=== PATIENT | female | born 1970 | race Caucasian/White ===

== ENCOUNTER 2017-10-02 18:41 | Inpatient (IN) | payer BC ==
--- NOTE | 2017-10-02 19:41 | ED PDOC ---
HPI: Neurologic - General Time Seen by Provider: 10/02/17 18:59 Chief Complaint (Nursing): Weakness/Neurological Deficit Chief Complaint (Provider): Weakness/Neurological Deficit Source: patient Exam Limitations: no limitations - History of Present Illness Timing/Duration: increasing, other (x12 hours) Allergies/Adverse Reactions: Allergies No Known Allergies Allergy (Verified 10/02/17 19:17) Home Medications: Ambulatory Orders No Known Home Med 10/02/17 Additional Complaint(s): Antoinette Escoto is a 47 year old female who presents to the emergency department with a complaint of right facial weakness associated with persisting tongue numbness and sinus congestion ongoing since 0800 today. Denied headache, nausea, vomiting, arm/leg weakness, blurry vision, fever or chills. PMD: none provided Past Medical History Reviewed: Historical Data, Nursing Documentation, Vital Signs Vital Signs: Last Vital Signs Temp 98.3 F 10/02/17 18:46 Pulse 129 H 10/02/17 18:46 Resp 22 10/02/17 18:46 BP 211/98 H 10/02/17 18:46 Pulse Ox 100 10/02/17 18:46 - Medical History PMH: No Chronic Diseases - Surgical History Surgical History: No Surg Hx - Family History Family History: States: Stroke, [place], CAD, Diabetes Denies: No Known Family Hx - Social History Current smoker - smoking cessation education provided: No Alcohol: None Drugs: Denies - Home Medications Home Medications: Ambulatory Orders Medication Instructions Recorded No Known Home Med 10/02/17 - Allergies Allergies/Adverse Reactions: Allergies Allergy/AdvReac Type Severity Reaction Status Date / Time No Known Allergies Allergy Verified 10/02/17 19:17 Review of Systems ROS Statement: Except As Marked, All Systems Reviewed And Found Negative Constitutional: Negative for: Fever, Chills Eyes: Negative for: Vision Change ENT: Positive for: Nose Congestion Gastrointestinal: Negative for: Nausea, Vomiting Musculoskeletal: Negative for: Arm Pain (weakness), Leg Pain (weakness) Neurological: Positive for: Weakness (right facial droop), Numbness (right- sided tongue). Negative for: Headache Physical Exam - Reviewed Nursing Documentation Reviewed: Yes Vital Signs Reviewed: Yes - Physical Exam Appears: Positive for: Non-toxic, No Acute Distress Head Exam: Positive for: ATRAUMATIC, NORMOCEPHALIC Skin: Positive for: Warm, Dry Eye Exam: Positive for: EOMI, PERRL ENT: Negative for: Pharyngeal Erythema, Tonsillar Exudate Neck: Positive for: Painless ROM, Supple Cardiovascular/Chest: Positive for: Tachycardia. Negative for: Murmur Respiratory: Positive for: Normal Breath Sounds. Negative for: Wheezing, Respiratory Distress Gastrointestinal/Abdominal: Positive for: Soft. Negative for: Tenderness Back: Positive for: Normal Inspection. Negative for: Decreased ROM Extremity: Positive for: Normal ROM. Negative for: Deformity Lymphatic: Negative for: Adenopathy Neurologic/Psych: Positive for: Alert, Oriented (x3), Motor/Sensory Deficits ( RIGHT facial droop involving brow), Cerebellar Tests (normal), Gait (normal), Facial Droop (RIGHT). Negative for: Aphasia - Laboratory Results Result Diagrams: 10/04/17 05:30 10/04/17 06:30 - ECG ECG: Positive for: Interpreted By Me ECG Rhythm: Positive for: Normal QRS, Normal ST Segment, Sinus Tachycardia O2 Sat by Pulse Oximetry: 100 (RA) Pulse Ox Interpretation: Normal Medical Decision Making Medical Decision Making: Initial Impression: Right facial droop Differential Diagnosis: Omer's Palsy; CVA; electrolyte abnormality Initial Plan: * Type and screen * CT head * EKG * CMP * Lipid * Troponin I * CBC * PTT * PT * Accuc[place]k Time: 1952 --CT head FINDINGS: Brain:No hemorrhage. No significant white matter disease. No edema. Ventricles: Unremarkable. No ventriculomegaly. Bones/joints: Unremarkable. No acute fracture. Soft tissues: Unremarkable. Sinuses: Unremarkable as visualized. No acute sinusitis. Mastoid air cells: Unremarkable as visualized. No mastoid effusion. IMPRESSION: No intracranial hemorrhage. Please see discussion above. Pt's labs c/w undiagnosed diabetes. Pt's blood pressure persistently elevated. Risk factors for CVA present. Despite clinical presentation of [place] palsy, pt should still be hospitalized for r/o CVA. Scribe Attestation: Documented by Mimi Reid, acting as a scribe for Sayda Hernandez MD. Provider Scribe Attestation: All medical record entries made by the Scribe were at my direction and personally dictated by me. I have reviewed the chart and agree that the record accurately reflects my personal performance of the history, physical exam, medical decision making, and the department course for this patient. I have also personally directed, reviewed, and agree with the discharge instructions and disposition. Disposition - Clinical Impression Clinical Impression: Facial paralysis on right side, HTN (hypertension), Diabetes Discussed With Dr.: Bertram Castro Doctor Will See Patient In The: Hospital Counseled Patient/Family Regarding: Studies Performed, Diagnosis - Disposition Disposition Time: 21:00 Condition: SERIOUS - Pt Status Changed To: Hospital Disposition Of: Observation - POA Present On Arrival: Poor Glycemic Control
[2017-10-02 20:07] LABS: BASO # 0.1 K/uL (0.0-0.2); BASO % 0.9 % (0.0-2.0); EOS # 0.2 K/uL (0.0-0.7); EOS % 1.8 % (0.0-4.0); HEMATOCRIT 40.8 % (34.0-47.0); LYMPH # 1.9 K/uL (1.0-4.3); MEAN CELL VOLUME 77.2 fl (81.0-99.0); MEAN CORPUSCULAR HEMOGLOBIN 25.9 pg (27.0-31.0); MEAN CORPUSCULAR HGB CONC 33.6 g/dL (33.0-37.0); MEAN PLATELET VOLUME 7.7 fl (7.2-11.7); MONO # 0.5 K/uL (0.0-0.8); MONO % 4.8 % (0.0-10.0); NEUT # 8.2 K/uL (1.8-7.0); NEUT % 75.5 % (50.0-75.0); WHITE BLOOD COUNT 10.9 K/uL (4.8-10.8)
[2017-10-02 20:13] LABS: PARTIAL THROMBOPLASTIN TIME 31.5 Seconds (25.6-37.1)
[2017-10-02 21:25] LABS: ALB/GLOB RATIO 0.9 (1.0-2.1); ALKALINE PHOSPHATASE 86 U/L (38-126); ALT/SGPT 32 U/L (9-52); AST/SGOT 19 U/L (14-36); BILIRUBIN,TOTAL 0.3 mg/dl (0.2-1.3); BLOOD UREA NITROGEN 8 mg/dl (7-17); CALCIUM 9.2 mg/dL (8.4-10.2); CARBON DIOXIDE 25 mmol/L (22-30); CHLORIDE 102 mmol/L (98-107); CHOLESTEROL 168 mg/dL (0-199); GFR AFRICAN-AMERICAN > 60; GLUCOSE,RANDOM 336 mg/dL (65-105); SODIUM 137 mmol/l (132-148); TOTAL PROTEIN 8.3 G/DL (6.3-8.2)
[2017-10-02] MEDS ORDERED: EnalaprilAT 1.25 mg/ml Inj IVP STA (21:55)
[2017-10-02] MEDS ORDERED: EnalaprilAT 1.25 mg/ml Inj ONE (21:58)
[2017-10-02 22:33] LABS: URINE BACTERIA FEW (<OCC); URINE BILIRUBIN NEGATIVE (NEGATIVE); URINE BLOOD SMALL (NEGATIVE); URINE COLOR YELLOW (YELLOW); URINE GLUCOSE (UA) >=500 mg/dL (Normal); URINE KETONE NEGATIVE (NEGATIVE); URINE LEUKOCYTE ESTERASE LARGE Leu/uL (Negative); URINE PROTEIN 30 mg/dL (NEGATIVE); URINE UROBILINOGEN 0.2-1.0 mg/dL (0.2-1.0)
[2017-10-02 22:53] LABS: RBC URINE 27 /hpf (0-3); WBC URINE 38 /hpf (0-5)
[2017-10-03 07:44] LABS: MEAN CELL VOLUME 76.8 fl (81.0-99.0); MEAN CORPUSCULAR HEMOGLOBIN 26.2 pg (27.0-31.0); MEAN CORPUSCULAR HGB CONC 34.1 g/dL (33.0-37.0); RED CELL DISTRIBUTION WIDTH 14.6 % (11.5-14.5); WHITE BLOOD COUNT 9.4 K/uL (4.8-10.8)
[2017-10-03 07:46] LABS: ALB/GLOB RATIO 0.9 (1.0-2.1); ALKALINE PHOSPHATASE 74 U/L (38-126); ALT/SGPT 34 U/L (9-52); AST/SGOT 19 U/L (14-36); BILIRUBIN,TOTAL 0.6 mg/dl (0.2-1.3); BLOOD UREA NITROGEN 7 mg/dl (7-17); CALCIUM 8.8 mg/dL (8.4-10.2); CARBON DIOXIDE 28 mmol/L (22-30); CHLORIDE 104 mmol/L (98-107); CHOLESTEROL 141 mg/dL (0-199); GFR AFRICAN-AMERICAN > 60; GLUCOSE,RANDOM 262 mg/dL (65-105); POTASSIUM 4.1 MMOL/L (3.6-5.0); SODIUM 139 mmol/l (132-148); TOTAL PROTEIN 7.5 G/DL (6.3-8.2)
--- NOTE | 2017-10-03 09:24 | CT ---
PROCEDURE: CT HEAD WITHOUT CONTRAST. HISTORY: RIGHT facial droop COMPARISON: None available. TECHNIQUE: Axial computed tomography images were obtained through the head/brain without intravenous contrast. Radiation dose: Total exam DLP = 797.67 mGy-cm. This CT exam was performed using one or more of the following dose reduction techniques: Automated exposure control, adjustment of the mA and/or kV according to patient size, and/or use of iterative reconstruction technique. FINDINGS: HEMORRHAGE: No intracranial hemorrhage. BRAIN: No mass effect or edema. No atrophy or chronic microvascular ischemic changes. VENTRICLES: Unremarkable. No hydrocephalus. CALVARIUM: Unremarkable. PARANASAL SINUSES: Unremarkable as visualized. No significant inflammatory changes. MASTOID AIR CELLS: Unremarkable as visualized. No inflammatory changes. OTHER FINDINGS: None. IMPRESSION: No acute intracranial hemorrhage. Consider followup MRI to assess facial droop and 2 exclude small acute infarct. Note that preliminary report was provided by overnight radiology service
[2017-10-03] MEDS: Enoxaparin 40 mg Syringe SC SCH (09:31)
[2017-10-03 11:10] LABS: THYROID STIMULATING HORMONE 1.64 mIU/ML (0.46-4.68)
--- NOTE | 2017-10-03 11:25 | RAD ---
HISTORY: Uncontrolled HTN COMPARISON: No prior. TECHNIQUE: Chest PA and lateral FINDINGS: LUNGS: Poor inspiration with low lung volumes, crowded bronchovascular markings and mild bibasilar atelectasis. . More discrete curvilinear atelectasis seen apparently in the right anterior lower lung field seen on the lateral projection PLEURA: No significant pleural effusion identified. No pneumothorax apparent. CARDIOVASCULAR: Normal. OSSEOUS STRUCTURES: No significant abnormalities. VISUALIZED UPPER ABDOMEN: Normal. OTHER FINDINGS: None. IMPRESSION: Poor inspiration with low lung volumes, crowded bronchovascular markings and mild bibasilar atelectasis.
--- NOTE | 2017-10-03 12:44 | HP ---
CHIEF COMPLAINT: Numbness of the face and asymmetry of the face. HISTORY OF PRESENT ILLNESS: This is a 47-year-old female without significant past medical history and significant medical followup who was having tongue numbness and facial numbness and dissymmetry of the face since 8:00 yesterday. The patient was brought to emergency room and was admitted for further management. REVIEW OF SYSTEMS: Positive for numbness and weakness of the face. Review of systems otherwise is negative for headache, dizziness, syncope, loss of consciousness, chest pain, shortness of breath, nausea, vomiting, diarrhea, constipation, any new joint or extremity pain. Review of systems of all other organ system is unremarkable. PAST MEDICAL HISTORY: Unremarkable. PAST SURGICAL HISTORY: Unremarkable. PERSONAL HISTORY: The patient is currently nonsmoker and nondrinker. No substance abuse. MEDICATIONS: The patient is not on any medication. ALLERGIES: THE PATIENT IS NOT ALLERGIC TO ANY MEDICATION. FAMILY HISTORY: Noncontributory. PHYSICAL EXAMINATION GENERAL: A well-built, well-nourished, morbidly obese 47-year-old female in no acute distress. VITAL SIGNS: Temperature 98.2, pulse 97, respirations 18, blood pressure 159/85. HEENT: The patient has a droop of right mouth angle. NECK: No JVD. No thyromegaly. No lymphadenopathy. No nystagmus. Normocephalic and atraumatic skull. HEART: S1 and S2 normal and regular. No significant murmur, gallop, or rub is heard. LUNGS: Shows good bilateral air exchange. No rales or rhonchi. ABDOMEN: Soft, nontender. No organomegaly. No fluid. Bowel sounds are plus. EXTREMITIES: No edema. No calf swelling. No tenderness. No acute ischemia. CENTRAL NERVOUS SYSTEM: Essentially unchanged except the patient has asymmetry of the face. DIAGNOSTIC DATA: Available diagnostic data reviewed. WBC 9.4, hemoglobin 12.6, hematocrit 37, platelets 263. Sodium 139, potassium 4.1, chloride 104, bicarb 28, BUN 7, creatinine 0.5. Accu-Cheks are 336, 217, 262. SMA-12 is unremarkable. Urinalysis is unremarkable. CAT scan of head shows no acute infarct. Telemetry monitoring does not show significant arrhythmias. EKG is unremarkable. Chest x-ray is unremarkable. ADMITTING IMPRESSION: Right facial weakness, rule out acute cerebrovascular accident, rule out Omer's palsy; type 2 diabetes, new onset; hypertension, morbid obesity, hypertriglyceridemia. PLAN: Plan as ordered. Case and plan discussed with the patient. Bertram Castro MD
[2017-10-03] MEDS: Insulin Regular 100 units/ml SC SCH ×3 (13:19→22:20)
--- NOTE | 2017-10-03 18:28 | CARD ---
APPROVED REPORT EKG Measurement Heart [id number] <Conclusion> Sinus tachycardia Possible Left atrial enlargement Borderline ECG
--- NOTE | 2017-10-04 01:18 | CP.PCM.CON ---
History of Present Illness - History of Present Illness History of Present Illness: Antoinette Escoto is a 47 year old female who presents to the emergency department with a complaint of right facial weakness associated with persisting tongue numbness and sinus congestion ongoing since 0800 today. Denied headache, nausea, vomiting, arm/leg weakness, blurry vision, fever or chills. She was found to have high Blood Pressure and High Blood Glucose and was started on medicine for DM and for HTN. She was found to have high lipid profile, high Cholesterol, high Triglycerides. Last Vital Signs Temp 98.3 F 10/02/17 18:46 Pulse 129 H 10/02/17 18:46 Resp 22 10/02/17 18:46 BP 211/98 H 10/02/17 18:46 Pulse Ox 100 10/02/17 18:46 - Medical History PMH: No Chronic Diseases - Surgical History Surgical History: No Surg Hx - Family History Family History: States: Stroke, [place], CAD, Diabetes Denies: No Known Family Hx - Social History Current smoker - smoking cessation education provided: No Alcohol: None Drugs: Denies - Home Medications Home Medications: Ambulatory Orders Medication Instructions Recorded No Known Home Med 10/02/17 Allergies Allergies/Adverse Reactions: Allergies Allergy/AdvReac Type Severity Reaction Status Date / Time No Known Allergies Allergy Verified 10/02/17 19:17 Review of Systems ROS Statement: Except As Marked, All Systems Reviewed And Found Negative Constitutional: Negative for: Fever, Chills Eyes: Negative for: Vision Change ENT: Positive for: Nose Congestion Gastrointestinal: Negative for: Nausea, Vomiting Musculoskeletal: Negative for: Arm Pain (weakness), Leg Pain (weakness) Neurological: Positive for: Weakness (right facial droop), Numbness (right- sided tongue). Negative for: Headache Physical Exam Physical Exam Appears: Positive for: Non-toxic, No Acute Distress Head Exam: Positive for: ATRAUMATIC, NORMOCEPHALIC Skin: Positive for: Warm, Dry Eye Exam: Positive for: EOMI, PERRL ENT: Negative for: Pharyngeal Erythema, Tonsillar Exudate Neck: Positive for: Painless ROM, Supple Cardiovascular/Chest: Positive for: Tachycardia. Negative for: Murmur Respiratory: Positive for: Normal Breath Sounds. Negative for: Wheezing, Respiratory Distress Gastrointestinal/Abdominal: Positive for: Soft. Negative for: Tenderness Back: Positive for: Normal Inspection. Negative for: Decreased ROM Extremity: Positive for: Normal ROM. Negative for: Deformity Lymphatic: Negative for: Adenopathy Neurologic/Psych: Positive for: Alert, Oriented (x3), Motor/Sensory Deficits ( RIGHT facial droop involving brow), Cerebellar Tests (normal), Gait (normal), Facial Droop (RIGHT). Negative for: Aphasia ECG Rhythm: Positive for: Normal QRS, Normal ST Segment, Sinus Tachycardia O2 Sat by Pulse Oximetry: 100 (RA) Medical Decision Making Medical Decision Making: Initial Impression: Right facial droop Differential Diagnosis: Omer's Palsy; CVA; electrolyte abnormality --CT head Negative IMPRESSION: No intracranial hemorrhage. Please see discussion above. Past Patient History - Past Medical History & Family History Past Medical History?: Yes - Past Social History Smoking Status: Never Smoked - CARDIAC Hx Cardiac Disorders: No - PULMONARY Hx Respiratory Disorders: No - NEUROLOGICAL Other/Comment: omer's palsy - HEENT Hx HEENT Problems: No - RENAL Hx Chronic Kidney Disease: No - ENDOCRINE/METABOLIC Hx Endocrine Disorders: No - HEMATOLOGICAL/ONCOLOGICAL Hx Blood Disorders: No Hx AIDS: No Hx Human Immunodeficiency Virus (HIV): No - INTEGUMENTARY Hx Dermatological Problems: No - MUSCULOSKELETAL/RHEUMATOLOGICAL Hx Musculoskeletal Disorders: No Hx Falls: No - GASTROINTESTINAL Hx Gastrointestinal Disorders: No - GENITOURINARY/GYNECOLOGICAL Hx Genitourinary Disorders: No - PSYCHIATRIC Hx Psychophysiologic Disorder: No Hx Substance Use: No - SURGICAL HISTORY Hx Surgeries: No - ANESTHESIA Hx Anesthesia: No Meds Allergies/Adverse Reactions: Allergies Allergy/AdvReac Type Severity Reaction Status Date / Time No Known Allergies Allergy Verified 10/02/17 19:17 - Medications Medications: Current Medications Amlodipine Besylate (Norvasc) 10 mg PO DAILY [facility] Enoxaparin Sodium (Lovenox) 40 mg SC DAILY [facility] PRN Reason: Protocol Last Admin: 10/03/17 09:31 Dose: 40 mg Insulin Human Regular (Humulin R) 0 units SC ACCU-CHECK [facility] PRN Reason: Protocol Last Admin: 10/03/17 22:20 Dose: Not Given Physical Exam - Neurological Exam Additional comments: She felt funny taste of food and water 1 to 2 days prior to her facial paralysis Denies hearing problems or ear noise or ringing Mental Status: Awake, Alert. Oriented X 3. Fluent coherent Speech Normal Cognition, normal memory X3 Cranial Nerves II to XII: Right Facial weakness , loss of facial expression, Loss of right Nasolabial Crease Loss of frontal Frowning, unable to raise her right eye brow, unable to purse her Right Eye Tenderness behind the left ear at the Stylomastoid area. Inability to blow her mouth with air, as it leaks on the right side. Central tongue. Right eye is dry, without tears and is irritable LMNL of the Right Facial Palsy, suggesting Right Omer's Palsy. Eye movements are normal, visual eye wei are normal Motor: Normal tone, Power and Muscle Bulk DTR are 0 to 1/4 toes are down going by plantar stimulation. Sensory: No deficits Cerebellar: Normal Exam, FNT, HST, Tandem walking Stature and Gait: Normal Results - Vital Signs Recent Vital Signs: Last Vital Signs Temp 98.7 F 10/04/17 00:53 Pulse 99 H 10/04/17 00:53 Resp 20 10/04/17 00:53 BP 158/94 H 10/04/17 00:53 Pulse Ox 98 10/04/17 00:53 - Labs Result Diagrams: 10/03/17 06:30 10/03/17 06:30 Labs: Laboratory Results - last 24 hr 10/02/17 10/03/17 10/03/17 19:59 05:31 06:30 WBC 9.4 RBC 4.82 Hgb 12.6 Hct 37.0 MCV 76.8 L MCH 26.2 L MCHC 34.1 RDW 14.6 H Plt Count 263 Sodium Potassium Chloride Carbon Dioxide Anion Gap BUN Creatinine Est GFR ( Amer) Est GFR (Non-Af Amer) POC Glucose (mg/dL) 284 H 217 H Random Glucose Calcium Total Bilirubin AST ALT Alkaline Phosphatase Total Protein Albumin Globulin Albumin/Globulin Ratio Triglycerides Cholesterol LDL Cholesterol Direct HDL Cholesterol Vitamin B12 TSH 3rd Generation 10/03/17 10/03/17 10/03/17 06:30 10:00 10:35 WBC RBC Hgb Hct MCV MCH MCHC RDW Plt Count Sodium 139 Potassium 4.1 Chloride 104 Carbon Dioxide 28 Anion Gap 12 BUN 7 Creatinine 0.5 L Est GFR ( Amer) > 60 Est GFR (Non-Af Amer) > 60 POC Glucose (mg/dL) 245 H Random Glucose 262 H Calcium 8.8 Total Bilirubin 0.6 AST 19 ALT 34 Alkaline Phosphatase 74 Total Protein 7.5 Albumin 3.5 Globulin 4.0 H Albumin/Globulin Ratio 0.9 L Triglycerides 142 D Cholesterol 141 LDL Cholesterol Direct 93 HDL Cholesterol 30 Vitamin B12 312 TSH 3rd Generation 1.64 10/03/17 10/03/17 16:29 22:01 WBC RBC Hgb Hct MCV MCH MCHC RDW Plt Count Sodium Potassium Chloride Carbon Dioxide Anion Gap BUN Creatinine Est GFR ( Amer) Est GFR (Non-Af Amer) POC Glucose (mg/dL) 211 H 161 H Random Glucose Calcium Total Bilirubin AST ALT Alkaline Phosphatase Total Protein Albumin Globulin Albumin/Globulin Ratio Triglycerides Cholesterol LDL Cholesterol Direct HDL Cholesterol Vitamin B12 TSH 3rd Generation Assessment & Plan (1) Facial paralysis on right side Assessment and Plan: R/O Omer's Palsy, R/O CVA, R/O Seizures Status: Acute (2) HTN (hypertension) Assessment and Plan: Newly diagnosed this admission High Lipid profile, Obesity Status: Acute (3) Diabetes 1.5, managed as type 2 Assessment and Plan: Newly diagnose during this admission Status: Acute
[2017-10-04] MEDS: Insulin Regular 100 units/ml SC SCH ×4 (06:20→23:00)
[2017-10-04 06:48] LABS: HEMATOCRIT 39.4 % (34.0-47.0); MEAN CELL VOLUME 77.8 fl (81.0-99.0); MEAN CORPUSCULAR HGB CONC 33.4 g/dL (33.0-37.0); RED CELL DISTRIBUTION WIDTH 14.7 % (11.5-14.5); WHITE BLOOD COUNT 8.2 K/uL (4.8-10.8)
[2017-10-04 07:19] LABS: ALB/GLOB RATIO 0.9 (1.0-2.1); ALKALINE PHOSPHATASE 77 U/L (38-126); ALT/SGPT 37 U/L (9-52); AST/SGOT 27 U/L (14-36); BILIRUBIN,TOTAL 0.7 mg/dl (0.2-1.3); BLOOD UREA NITROGEN 9 mg/dl (7-17); CALCIUM 9.1 mg/dL (8.4-10.2); CARBON DIOXIDE 27 mmol/L (22-30); CHLORIDE 103 mmol/L (98-107); CHOLESTEROL 152 mg/dL (0-199); GFR AFRICAN-AMERICAN > 60; GLUCOSE,RANDOM 244 mg/dL (65-105); POTASSIUM 4.2 MMOL/L (3.6-5.0); SODIUM 139 mmol/l (132-148)
[2017-10-04 07:36] LABS: THYROID STIMULATING HORMONE 1.91 mIU/ML (0.46-4.68)
[2017-10-04] MEDS: Enoxaparin 40 mg Syringe SC SCH (09:04)
--- NOTE | 2017-10-04 10:13 | PN ---
DATE: 10/04/2017 SUBJECTIVE: The patient is seen and examined. Interim events noted. Consults noted and appreciated. Neurology followup and intervention noted and appreciated. The patient remains in Progressive Care Unit on telemetry monitoring. The patient feels okay, denies any specific medical complaints. No chest pain. No shortness of breath. PHYSICAL EXAMINATION: GENERAL: The patient is in no acute distress. VITAL SIGNS: Stable. HEART: S1 and S2, normal and regular. LUNGS: Good bilateral air exchange. ABDOMEN: Soft, nontender. EXTREMITIES: No edema. No calf swelling. No tenderness. No acute ischemia. CENTRAL NERVOUS SYSTEM: Essentially unchanged. The patient still has signs of Omer's palsy. DIAGNOSTIC DATA: Available diagnostic data reviewed. Hemoglobin A1c significantly high. Accu-Chek has been running high. Blood pressure also is a little high. ASSESSMENT AND PLAN: Diagnostic data reviewed the patient at the length, need for multiple medications, explained in detail. New diagnosis of diabetes and blood pressure and Omer's palsy also explained to the patient in detail. Complication also advised, need for periodic followup also explained to the patient. Plan as ordered. Bertram Castro MD
[2017-10-04] MEDS: Artificial Tears Opht Soln OU SCH (21:36)
--- NOTE | 2017-10-04 22:35 | CP.PCM.PN ---
Subjective - Date & Time of Evaluation Date of Evaluation: 10/04/17 Time of Evaluation: 20:20 - Subjective Subjective: Improvement of her right side facial Palsy is clear as she is exercising since I visited her and explained to her her problems and her Facial exercises. Her BP is better. Objective - Vital Signs/Intake and Output Vital Signs (last 24 hours): Temp Pulse Resp BP Pulse Ox 97.8 F 96 H 16 129/80 97 10/04/17 19:57 10/04/17 19:57 10/04/17 19:57 10/04/17 19:57 10/04/17 19:57 Intake and Output: 10/04/17 10/05/17 18:59 06:59 Intake Total 1500 Balance 1500 - Medications Medications: Current Medications Acyclovir (Zovirax) 800 mg PO TID [facility] PRN Reason: Protocol Last Admin: 10/04/17 17:38 Dose: 800 mg Amlodipine Besylate (Norvasc) 10 mg PO DAILY [facility] Last Admin: 10/04/17 09:03 Dose: 10 mg Artificial Tears (Artificial Tears) 1 drop OU Q4 [facility] Last Admin: 10/04/17 21:36 Dose: 1 drop Enoxaparin Sodium (Lovenox) 40 mg SC DAILY [facility] PRN Reason: Protocol Last Admin: 10/04/17 09:04 Dose: 40 mg Insulin Human Regular (Humulin R) 0 units SC ACCU-CHECK [facility] PRN Reason: Protocol Last Admin: 10/04/17 17:37 Dose: Not Given Lisinopril (Zestril) 10 mg PO DAILY [facility] Last Admin: 10/04/17 09:02 Dose: 10 mg Metformin HCl (Glucophage) 500 mg PO BIDWM [facility] Last Admin: 10/04/17 17:39 Dose: 500 mg - Labs Labs: 10/04/17 05:30 10/04/17 06:30 PT 11.8 Seconds (9.8-13.1) 10/02/17 20:00 INR 1.0 (0.9-1.2) 10/02/17 20:00 APTT 31.5 Seconds (25.6-37.1) 10/02/17 20:00 Assessment and Plan (1) Facial paralysis on right side Status: Acute (2) HTN (hypertension) Status: Acute (3) Diabetes 1.5, managed as type 2 Status: Acute
[2017-10-05 05:59] LABS: HEMATOCRIT 38.5 % (34.0-47.0); MEAN CELL VOLUME 78.4 fl (81.0-99.0); MEAN CORPUSCULAR HEMOGLOBIN 26.1 pg (27.0-31.0); MEAN CORPUSCULAR HGB CONC 33.3 g/dL (33.0-37.0); RED CELL DISTRIBUTION WIDTH 14.5 % (11.5-14.5); WHITE BLOOD COUNT 10.5 K/uL (4.8-10.8)
[2017-10-05 06:14] LABS: ALB/GLOB RATIO 0.9 (1.0-2.1); ALKALINE PHOSPHATASE 76 U/L (38-126); ALT/SGPT 42 U/L (9-52); AST/SGOT 24 U/L (14-36); BILIRUBIN,TOTAL 0.6 mg/dl (0.2-1.3); BLOOD UREA NITROGEN 15 mg/dl (7-17); CALCIUM 9.3 mg/dL (8.4-10.2); CARBON DIOXIDE 26 mmol/L (22-30); CHLORIDE 102 mmol/L (98-107); GFR AFRICAN-AMERICAN > 60; GLUCOSE,RANDOM 240 mg/dL (65-105); SODIUM 137 mmol/l (132-148); TOTAL PROTEIN 8.2 G/DL (6.3-8.2)
[2017-10-05] MEDS: Artificial Tears Opht Soln OU SCH ×2 (06:15→10:58)
[2017-10-05] MEDS: Insulin Regular 100 units/ml SC SCH (06:18)
[2017-10-05 08:14] VITALS: PULSE 94; RESP 20; O2SAT 96
[2017-10-05] MEDS: Enoxaparin 40 mg Syringe SC SCH (10:58)
--- NOTE | 2017-10-05 11:20 | US ---
PROCEDURE: Duplex ultrasound of the carotid and vertebral arteries. She HISTORY: R/O CVA COMPARISON: None available. TECHNIQUE: Grayscale and duplex Doppler evaluation of the cervical carotid and vertebral arteries were performed. The common carotid, carotid bifurcations and cervical ICA and proximal ECA were evaluated. The vertebral arteries were evaluated for gross patency and direction. FINDINGS: RIGHT CAROTID ARTERIES: Common Carotid Artery: Intimal thickening is mild and diffuse she Maximal flow velocity of 114.3 cm/s. Carotid Bifurcation: Moderate plaque formation Internal Carotid Artery:Heterogeneous plaque formation. Maximal flow velocity of 94.3 cm/s. External Carotid Artery (proximal branches): Normal. Maximal flow velocity of 115.2 cm/s. ICA/CCA Ratio: 0.8 LEFT CAROTID ARTERIES: Common Carotid Artery: Normal. Maximal flow velocity of 135.8 cm/s. Carotid Bifurcation: Normal. Internal Carotid Artery:Heterogeneous plaque formation. Maximal flow velocity of 110.3 cm/s. External Carotid Artery (proximal branches): Normal. Maximal flow velocity of 123.2 cm/s. ICA/CCA Ratio: 0.8 VERTEBRAL ARTERIES: Right Vertebral Artery: Patent. Antegrade flow. Left Vertebral Artery: Patent. Antegrade flow. OTHER FINDINGS: Incomplete visualization of thyroid nodule left lobe, solid 1.4 cm. IMPRESSION: Right ICA degree of stenosis: Less than 50% Left ICA degree of stenosis: Less than 50% Solid thyroid nodule left lobe. Elective ultrasound advised. Reference Internal Carotid Artery (ICA) Peak Systolic Velocity (PSV) for above: 1. Less than 50% stenosis less than 125 cm/s peak systolic velocity 2. 50-69% stenosis 125-230cm/s peak systolic velocity 3. Greater than 70% but less than near occlusion greater than 230 cm/s peak systolic velocity
--- NOTE | 2017-10-05 11:39 | PN ---
DATE: 10/05/2017 SUBJECTIVE: The patient is seen and examined. Interim events noted. Consults noted and appreciated. Neurology followup and interventions noted and appreciated. The patient remains in Progressive Care Unit on telemetry monitoring. Patient feels better. No chest pain, no shortness of breath. Facial weakness persists, but the patient is able to swallow food without any signs of aspiration or coughing. PHYSICAL EXAMINATION GENERAL: The patient is in no acute distress. VITAL SIGNS: Stable. HEART: S1 and S2, normal and regular. LUNGS: Good bilateral air exchange. ABDOMEN: Soft, nontender. EXTREMITIES: No edema. No calf swelling. No tenderness. No acute ischemia. CENTRAL NERVOUS SYSTEM: Essentially unchanged. HEENT: The patient does have persistent right facial palsy. DIAGNOSTIC DATA: Available diagnostic data reviewed. Accu-Chek's are much better but still high. Hemoglobin A1c is 9.3. Overall, telemetry monitoring does not reveal significant arrhythmias. ASSESSMENT AND PLAN: Overall, patient is really improving. Plan as ordered. Bertram Castro MD
[2017-10-05 12:50] VITALS: BP 110/79; TEMP 97.5
--- NOTE | 2017-10-06 01:19 | CP.PCM.PN ---
Subjective - Date & Time of Evaluation Date of Evaluation: 10/05/17 Time of Evaluation: 13:00 - Subjective Subjective: Patient is discharged after she had her tests, MRI will be performed as an out patient. Her Glucose in serum is above 245 Her BP is better controlled. She is exercising for her Righr Facial Palsy and her face is improving. Objective - Vital Signs/Intake and Output Vital Signs (last 24 hours): Temp Pulse Resp BP Pulse Ox 97.5 F L 94 H 20 110/79 96 10/05/17 12:49 10/05/17 12:49 10/05/17 12:49 10/05/17 12:49 10/05/17 12:49 - Labs Labs: 10/05/17 05:00 10/05/17 05:00 PT 11.8 Seconds (9.8-13.1) 10/02/17 20:00 INR 1.0 (0.9-1.2) 10/02/17 20:00 APTT 31.5 Seconds (25.6-37.1) 10/02/17 20:00 Assessment and Plan (1) Facial paralysis on right side Status: Acute (2) HTN (hypertension) Status: Acute (3) Diabetes 1.5, managed as type 2 Status: Acute
--- NOTE | 2017-10-06 13:03 | PQF GENQUE ---
Dr. Castro History and Physical documented that pt was admitted for "rule out cva , rule out bells palsy." After study what is the principal diagnosis for this case? This form is a permanent part of the medical record Clarification of your documentation is requested to better reflect the severity of illness and intensity of treatment of your patient. Indicators present [] Specify: [] [] Specify: [] [] Specify: [] [] Specify: [] Location in the medical record that reflects the above clinical findings: [] Treatment Provided: [] PHYSICIAN'S RESPONSE Based on your medical judgment of the clinical indicators outlined above please clarify the following: [] Practitioner response [] If unable to determine, please check the box, sign and date. Present On Admission (POA) Indicator: [] Present at the time of admission [] Not present at the time of admission [] Clinically Undetermined In responding to this query, please exercise your independent professional judgment. The fact that a question is asked does not imply that any particular answer is desired or expected. Thank you for your clarification on this documentation. If you have any questions please call:[ ] * Thank you, [ ]Irma Hernández bottle dealer [facility]
[2017-10-08 13:40] LABS: 18 KD (IGG) BAND Nonreactive; 23 KD (IGG) BAND Nonreactive; 23 KD (IGM) BAND Nonreactive; 28 KD (IGG) BAND Nonreactive; 30 KD (IGG) BAND Nonreactive; 39 KD (IGG) BAND Nonreactive; 39 KD (IGM) BAND Nonreactive; 41 KD (IGG) BAND Nonreactive; 41 KD (IGM) BAND Nonreactive; 45 KD (IGG) BAND Nonreactive; 58 KD (IGG) BAND Nonreactive; 66 KD (IGG) BAND Nonreactive; 93 KD (IGG) BAND Nonreactive; LYME DISEASE INTERP (IGG) Negative (Negative)
== END 2017-10-05 13:26 | disposition home or self-care (01) | DRG 74 ==
LOC: EDSEX 18:41 → H.ER 18:41 → H.ERHOLD 21:57 → H.TEL 23:09 → OBSVTOIN 10-03 21:35
PROVIDERS: ADMIT Internal Medicine; ATTEND Internal Medicine
DX: G51.0 Bell's palsy (principal); Z68.44 Body mass index [BMI] 60.0-69.9, adult; I10 Essential (primary) hypertension; E11.9 Type 2 diabetes mellitus without complications; E78.1 Pure hyperglyceridemia; E66.01 Morbid (severe) obesity due to excess calories; E78.00 Pure hypercholesterolemia, unspecified